=== PATIENT | female | born 1960 | race Two or more races ===

== ENCOUNTER 2017-09-19 02:51 | Inpatient (IN) | payer OTHER ==
[~2017-09-19] VITALS: Ht 160 cm; Wt 91.6 kg
--- NOTE | 2017-09-19 03:15 | NUR ---
IV STARTED BY ANGELY RAC 18G. BLOOD AND URINE SENT TO LAB
--- NOTE | 2017-09-19 03:16 | NUR ---
EKG TO BE DONE BY DEBONING TEAM LEADER AT BEDSIDE
[2017-09-19 03:21] LABS: BASOPHILS # (AUTO) 0.1 /CMM (0.0-0.2); BASOPHILS % (AUTO) 0.5 % (0.0-2.0); EOSINOPHILS % (AUTO) 1.3 % (0.0-6.0); HEMATOCRIT 48 % (33-45); HEMOGLOBIN 15.9 g/dL (11.5-14.8); LYMPHOCYTES # (AUTO) 3.3 /CMM (0.8-4.8); LYMPHOCYTES % (AUTO) 24.8 % (20.0-44.0); MEAN CORPUSCULAR HEMOGLOBIN 31 PG (26.0-33.0); MEAN CORPUSCULAR HGB CONC 33 g/dl (31.0-36.0); MEAN CORPUSCULAR VOLUME 93 fL (82-100); MONOCYTES # (AUTO) 0.6 /CMM (0.1-1.30); MONOCYTES % (AUTO) 4.2 % (2.0-12.0); NEUTROPHILS # (AUTO) 9.1 /CMM (1.8-8.9); NEUTROPHILS % (AUTO) 69.2 % (43.0-81.0); PLATELET COUNT (AUTO) 250 /CMM (150-450); RDW COEFFICIENT OF VARIATION 13.2 (11.5-15.0); RED BLOOD CELL COUNT(AUTO) 5.14 MIL/uL (4.0-5.2); WHITE BLOOD COUNT (AUTO) 13.1 K/uL (4.3-11.0)
[2017-09-19] MEDS ORDERED: DILTIAZEM HCL 25 MG IV ONE (03:25)
[2017-09-19] MEDS ORDERED: DILTIAZEM HCL 25 MG IV IV ONE (03:30)
[2017-09-19] MEDS ORDERED: IV NS 0.9% 1,000 ML BAG IV ONE (03:30)
[2017-09-19 03:33] LABS: CALCIUM, SERUM 9.1 mg/dL (8.5-10.1); CARBON DIOXIDE 28 mmol/L (21-32); CHLORIDE 103 mmol/L (98-107); GLUCOSE 192 mg/dL (74-106); POTASSIUM 3.2 mmol/L (3.5-5.1); SODIUM SERUM 141 mmol/L (136-145); UREA NITROGEN, BLOOD 16 mg/dL (7-18)
--- NOTE | 2017-09-19 03:33 | NUR ---
VITALS AFTER 20MG CARDIZEM IVP HR 123 R 25 O2 95% BP 154/92
[2017-09-19 03:43] LABS: TROPONIN I < 0.017 ng/mL (0.00-0.056)
[2017-09-19] MEDS ORDERED: ASPIRIN 81 MG TAB.CHEW ONE (03:52)
[2017-09-19] MEDS ORDERED: PANTOPRAZOLE 40 MG VIAL ONE (03:52)
[2017-09-19] MEDS ORDERED: ONDANSETRON HCL/PF 4 MG/2 ML VIAL ONE (03:52)
[2017-09-19] MEDS ORDERED: ASPIRIN 81 MG TAB.CHEW PO ONE (04:00)
[2017-09-19] MEDS ORDERED: PANTOPRAZOLE 80 MG in IV NS 0.9% 500 ML IV ONE (04:00)
[2017-09-19] MEDS ORDERED: ONDANSETRON HCL/PF 4 MG/2 ML VIAL IV ONE (04:00)
--- NOTE | 2017-09-19 04:38 | NUR ---
PATIENT HAS STATED "I FEEL SO MUCH BETTER. I DO NOT FEEL THAT WEIRD FLUTTER FEELING ANYMORE. SO HAPPY MEDICATION HAS WORKED" WILL CONTINUE TO MONITOR FOR ANY CHANGES DURING THE SHIFT.
[2017-09-19] MEDS ORDERED: IV NS 0.9% 1,000 ML IV PRN (04:50)
[2017-09-19] MEDS ORDERED: ZOLPIDEM TARTRATE 5 MG TABLET PO PRN (05:00)
[2017-09-19] MEDS ORDERED: METOPROLOL TARTRATE 25 MG TABLET PO PRN (05:00)
[2017-09-19] MEDS ORDERED: HYDROCODONE/APAP 5/325MG 1 EACH TABLET PO PRN (05:00)
[2017-09-19] MEDS ORDERED: Z GUARD REMEDY 2 OZ OINT TP PRN (05:00)
[2017-09-19] MEDS ORDERED: hydrALAZINE HCL 25 MG TABLET PO PRN (05:00)
[2017-09-19] MEDS ORDERED: MORPHINE SULFATE INJ 2 MG/ML DISP.SYRIN IV PRN (05:00)
[2017-09-19] MEDS ORDERED: MAG HYDROX/AL HYDROX/SIMETH 30 ML UDC PO PRN (05:00)
[2017-09-19] MEDS ORDERED: ONDANSETRON HCL/PF 4 MG/2 ML VIAL IVP PRN (05:00)
[2017-09-19] MEDS ORDERED: MAGNESIUM HYDROXIDE 30 ML UDC PO PRN (05:00)
[2017-09-19] MEDS ORDERED: POTASSIUM CHLORIDE 20 MEQ TAB.PRT.SR PO ONE ×2 (05:00)
--- NOTE | 2017-09-19 06:03 | NUR ---
CIRCULAR SAW OPERATOR AT BEDSIDE
[2017-09-19] MEDS ORDERED: LANS30CA56 PO (06:26)
[2017-09-19] MEDS ORDERED: BENA20TA2 PO (06:26)
[2017-09-19] MEDS ORDERED: PHEN100C4 PO (06:26)
--- NOTE | 2017-09-19 07:30 | NUR ---
ARGON TESTER OPENING NOTES RECEIVED PATIENT IN BED AWAKE, IN STABLE CONDITION. ALERT AND ORIENTED X4. VERBALLY RESPONSIVE, ABLE TO MAKE NEEDS KNOWN. BREATHING EVEN AND UNLABORED. CURRENTLY WITH NO COMPLAINTS OF PAIN OR DISCOMFORT. SKIN DRY AND WARM TO TOUCH. IV ON RIGHT AC #18 INTACT AND PATENT. CURRENTLY NPO TILL FURTHER ORDERS FROM TUBE WASHER. ALL OTHER NEEDS ATTENDED TO. CALL LIGHT WITHIN REACH. BED ON LOWEST LOCKED POSITION. WILL CONTINUE TO MONITOR.
[2017-09-19 08:00] VITALS: BP 123/77
[2017-09-19] MEDS ORDERED: MORPHINE SULFATE INJ 4 MG/ML DISP.SYRIN IV PRN (08:21)
[2017-09-19] MEDS ORDERED: ASPIRIN 81 MG TAB.CHEW PO SCH (09:00)
[2017-09-19 09:58] LABS: THYROID STIMULATING HORMONE 2.516 uIU/mL (0.358-3.74)
[2017-09-19] MEDS ORDERED: IOHEXOL-350 100 ML VIAL IV ONE ×2 (11:02→11:55)
[2017-09-19] MEDS ORDERED: CT SWABBABLE VALVE TRANS SET 1 EA INFUS.SET MC ONE (11:03)
[2017-09-19] MEDS ORDERED: IV NS 0.9% 250 ML IV ONE (11:03)
[2017-09-19 11:09] LABS: PHOSPHORUS 3.7 mg/dL (2.5-4.9)
[2017-09-19] MEDS: DILTIAZEM HCL 30 MG TABLET PO SCH ×3 (12:00→18:00)
--- NOTE | 2017-09-19 12:34 | NUR ---
DURING CTA OF HEART, PT IV INFILTRATED WITH APPROX 30 CC OF ISO 350. COMPRESSION PAD WAS APPLIED ON THE SITE( WARM). NURSING STRAIGHT TRUCK DRIVER WAS INFORMED.OF INCIDENT.
[2017-09-19] MEDS: METOPROLOL TARTRATE 25 MG TABLET PO SCH ×2 (12:48→18:00)
--- NOTE | 2017-09-19 12:50 | NUR ---
RN NOTES DILTIAZEM GIVEN AT 12:50PM SCHEDULED.
[2017-09-19 16:04] VITALS: BP 110/65
--- NOTE | 2017-09-19 18:39 | NUR ---
DRIVER LICENSE AGENT CLOSING NOTES PATIENT IN BED AWAKE, IN STABLE CONDITION. ALERT AND ORIENTED X4. VERBALLY RESPONSIVE, ABLE TO MAKE NEEDS KNOWN. BREATHING EVEN AND UNLABORED. CURRENTLY WITH NO COMPLAINTS OF PAIN OR DISCOMFORT. SKIN DRY AND WARM TO TOUCH. IV ON LEFT AC #18 INTACT AND PATENT. HAD CTA EARLIER WITH NO ABNORMAL RESULTS. ALL OTHER NEEDS ATTENDED TO. CALL LIGHT WITHIN REACH. BED ON LOWEST LOCKED POSITION. WILL CONTINUE TO MONITOR. WILL ENDORSE TO ONCOMING NURSE FOR CONTINUITY OF CARE.
[2017-09-19] MEDS: ACETAMINOPHEN 325 MG TABLET PO PRN (18:59)
--- NOTE | 2017-09-19 19:30 | NUR ---
SOFTLINES SUPERVISOR OPENING NOTES PT RESTING IN BED, A/O X 4 BREATHING EVEN AND UNLABORED WITH NO COMPLAINTS OF PAIN OR DISCOMFORT. IV ON LEFT AC #18 INTACT AND PATENT.SINUS BRADYCARDIA HR 57-58 . CALL LIGHT WITHIN REACH. BED ON LOWEST LOCKED POSITION. WILL CONTINUE TO MONITOR.
[2017-09-19 20:00] VITALS: BP 128/78
[2017-09-20] MEDS: METOPROLOL TARTRATE 25 MG TABLET PO SCH ×2 (02:02→02:03)
[2017-09-20] MEDS: DILTIAZEM HCL 30 MG TABLET PO SCH ×2 (02:03→06:55)
[2017-09-20 06:55] LABS: BASOPHILS % (AUTO) 0.3 % (0.0-2.0); EOSINOPHILS % (AUTO) 1.9 % (0.0-6.0); HEMATOCRIT 48 % (33-45); HEMOGLOBIN 16.4 g/dL (11.5-14.8); LYMPHOCYTES # (AUTO) 2.8 /CMM (0.8-4.8); LYMPHOCYTES % (AUTO) 23.6 % (20.0-44.0); MEAN CORPUSCULAR HEMOGLOBIN 32 PG (26.0-33.0); MEAN CORPUSCULAR HGB CONC 34 g/dl (31.0-36.0); MEAN CORPUSCULAR VOLUME 93 fL (82-100); MONOCYTES # (AUTO) 0.7 /CMM (0.1-1.30); MONOCYTES % (AUTO) 5.9 % (2.0-12.0); NEUTROPHILS # (AUTO) 8.2 /CMM (1.8-8.9); NEUTROPHILS % (AUTO) 68.3 % (43.0-81.0); PLATELET COUNT (AUTO) 199 /CMM (150-450); RDW COEFFICIENT OF VARIATION 13.2 (11.5-15.0); WHITE BLOOD COUNT (AUTO) 11.9 K/uL (4.3-11.0)
[2017-09-20 07:10] LABS: TROPONIN I 0.244 ng/mL (0.00-0.056)
[2017-09-20 07:11] LABS: ALBUMIN 3.3 g/dL (3.4-5.0); BILIRUBIN,TOTAL 0.5 mg/dL (0.2-1.0); CALCIUM, SERUM 9.1 mg/dL (8.5-10.1); CREATININE 0.8 mg/dL (0.6-1.3); MAGNESIUM 1.9 mg/dL (1.8-2.4); PHOSPHORUS 5.4 mg/dL (2.5-4.9); POTASSIUM 3.7 mmol/L (3.5-5.1); TOTAL PROTEIN, SERUM 7.6 g/dL (6.4-8.2)
--- NOTE | 2017-09-20 07:11 | NUR ---
TILE TRIMMER CLOSING NOTES PT RESTING IN BED, A/O X 4 BREATHING EVEN AND UNLABORED WITH NO COMPLAINTS OF PAIN OR DISCOMFORT. IV ON LEFT AC #18 INTACT AND PATENT.SINUS BRADYCARDIA HR 47-51 . CALL LIGHT WITHIN REACH. BED ON LOWEST LOCKED POSITION. WILL ENDORSE TO DAY SHIFT NURSE FOR NORMA.
[2017-09-20 08:00] VITALS: BP 123/63
--- NOTE | 2017-09-20 08:00 | NUR ---
MS RN NOTES PATIENT IN BED RESTING. ALERT, ORIENTED X3 NO SOB OR ACUTE DISTRESS NOTED. PATIENT DENIES ANY PAIN OR DISCOMFORT. PERIPHERAL IV INTACT PATENT. ALL BED IN LOW LOCKED POSITION. CALL LIGHT WITHIN REACH. WILL CONTINUE TO MONITOR.
[2017-09-20] MEDS: ACETAMINOPHEN 325 MG TABLET PO PRN (08:07)
--- NOTE | 2017-09-20 08:30 | NUR ---
PHILOSOPHY LECTURER NOTES PATIENT SEEN AND EVALUATED BY DR. DUMONT. PATIENT CLEARED TO BE DISCHARGED HOME.
[2017-09-20] MEDS ORDERED: METOPROLOL TARTRATE 25 MG TABLET PO SCH (09:00)
[2017-09-20 16:00] VITALS: BP 136/76
--- NOTE | 2017-09-20 18:20 | NUR ---
MS RN NOTES PATIENT DISCHARGED HOME WITH SON. IN STABLE CONDITION. PATIENT ALERT, ORIENTED X3. AWARE OF ALL ABNORMAL LABS. DISCHARGE INSTRUCTIONS PROVIDED TO PATIENT VERBALIZED UNDERSTANDING. PATIENT REFUSE PICTURES STATES THEY WERE JUST TAKEN YESTERDAY. PRESCRIPTION PROVIDED TO PATIENT. ALL BELONGINGS ACCOUNTED FOR , BELONGING LIST SIGNED BY PATIENT. PATIENT DISCHARGED BY PRIVATE CAR WITH SON.
== END 2017-09-20 18:40 | disposition home or self-care (01) | DRG 201 ==
LOC: ER 02:51 → TELE 06:06 → MED 09-20 07:42
PROVIDERS: ADMIT Internal Medicine; ATTEND Internal Medicine
DX: I48.91 Unspecified atrial fibrillation (principal); I21.A1 Myocardial infarction type 2; D68.59 Other primary thrombophilia; I10 Essential (primary) hypertension; G40.909 Epilepsy, unspecified, not intractable, without status epilepticus; E55.9 Vitamin D deficiency, unspecified; E66.01 Morbid (severe) obesity due to excess calories; E87.6 Hypokalemia; I25.2 Old myocardial infarction; K21.9 Gastro-esophageal reflux disease without esophagitis; Z79.899 Other long term (current) drug therapy; D72.829 Elevated white blood cell count, unspecified; Z68.35 Body mass index [BMI] 35.0-35.9, adult
CPT/HCPCS: 36415; 71045-TC; 75574; 80048-TC; 80053-TC; 80061-TC; 80185-TC; 82306; 83735-TC; 84100-TC; 84439-TC; 84443-TC; 84484-TC; 85025-TC; 85378-TC; 87081-TC; 93307-TC; A4606; C9113; J2405; J3490; J7030; J7040; J7050; Q9967; Z7610

== ENCOUNTER 2023-04-20 11:10 | Emergency (ER) | payer MEDICAID, OTHER ==
[~2023-04-20] VITALS: Ht 157.5 cm; Wt 83.9 kg
[~2023-04-20 11:10] MED LIST: BENA20TA9 PO; LANS30CA56 PO; PHEN100C4 PO
[2023-04-20 11:21] VITALS: BP 174/80; TEMP 98
[2023-04-20 11:25] VITALS: O2SAT 98
[2023-04-20] MEDS ORDERED: GUAIFENESIN/D-METHORPHAN HB 5 ML UDC PO ONE (11:30)
[2023-04-20] MEDS ORDERED: dexaMETHasone SOD PHOSPHATE 10 MG/ML VIAL MC ONE (11:30)
[2023-04-20] MEDS ORDERED: dexaMETHasone SOD PHOSPHATE 1 ML ONE (11:33)
[2023-04-20] MEDS ORDERED: GUAIFENESIN/D-METHORPHAN HB 5 ML UDC ONE (11:33)
== END 2023-04-20 13:30 | disposition home or self-care (01) ==
LOC: ER 11:10
DX: J02.8 Acute pharyngitis due to other specified organisms (principal); I10 Essential (primary) hypertension
CPT/HCPCS: 99283; 87880; J1100; 86403-TC

== ENCOUNTER 2023-09-08 22:07 | Emergency (ER) | payer MEDICAID | END 2023-09-08 22:28 | disposition left against medical advice (07) | LOC: ER 22:09 | DX: R51.9 Headache, unspecified (principal); Z53.21 Procedure and treatment not carried out due to patient leaving prior to being seen by health care provider ==

== ENCOUNTER 2023-10-15 00:32 | Emergency (ER) | payer MEDICAID, OTHER ==
[~2023-10-15] VITALS: Ht 157.5 cm; Wt 81.6 kg
[2023-10-15 01:25] LABS: BASOPHILS % (AUTO) 0.4 % (0.0-2.0); EOSINOPHILS # (AUTO) 0.2 K/uL (0.0-0.7); EOSINOPHILS % (AUTO) 1.7 % (0.0-6.0); HEMATOCRIT 41 % (33-45); HEMOGLOBIN 13.6 g/dL (11.5-14.8); LYMPHOCYTES # (AUTO) 2.9 K/uL (0.8-4.8); LYMPHOCYTES % (AUTO) 30.4 % (20.0-44.0); MEAN CORPUSCULAR HEMOGLOBIN 30 PG (26.0-33.0); MEAN CORPUSCULAR HGB CONC 33 g/dl (31.0-36.0); MEAN CORPUSCULAR VOLUME 92 fL (82-100); MONOCYTES # (AUTO) 0.8 K/uL (0.1-1.30); NEUTROPHILS # (AUTO) 5.6 K/uL (1.8-8.9); NEUTROPHILS % (AUTO) 59.5 % (43.0-81.0); PLATELET COUNT (AUTO) 237 K/uL (150-450); RED BLOOD CELL COUNT(AUTO) 4.45 MIL/uL (4.0-5.2); RED CELL DISTRIBUTION WIDTH 13.4 % (11.5-15.0); WHITE BLOOD COUNT (AUTO) 9.5 K/uL (4.3-11.0)
[2023-10-15] MEDS ORDERED: TDAP [DIPH/PERTUSSIS/TET] 0.5 ML VIAL IM ONE (01:30)
[2023-10-15 01:34] LABS: CALCIUM, SERUM 8.7 mg/dL (8.5-10.1); CREATININE 0.6 mg/dL (0.6-1.3); POTASSIUM 3.4 mmol/L (3.5-5.1)
[2023-10-15 01:47] LABS: ALBUMIN 2.8 g/dL (3.4-5.0); BILIRUBIN,TOTAL 0.2 mg/dL (0.2-1.0); TOTAL PROTEIN, SERUM 6.8 g/dL (6.4-8.2)
[2023-10-15 03:13] VITALS: BP 132/80; TEMP 98.1; O2SAT 98
== END 2023-10-15 03:13 | disposition home or self-care (01) ==
LOC: ER 00:44
DX: S01.81XA Laceration without foreign body of other part of head, initial encounter (principal); R56.9 Unspecified convulsions; I10 Essential (primary) hypertension; Z86.79 Personal history of other diseases of the circulatory system; W01.198A Fall on same level from slipping, tripping and stumbling with subsequent striking against other object, initial encounter; Y93.89 Activity, other specified; Y92.098 Other place in other non-institutional residence as the place of occurrence of the external cause; Y99.8 Other external cause status
CPT/HCPCS: 36415; 70450-TC; 70486-TC; 71045-TC; 80053-TC; 83880; 84484-TC; 85025-TC

== ENCOUNTER 2023-10-31 14:42 | Emergency (ER) | payer OTHER ==
[~2023-10-31] VITALS: Ht 157.5 cm; Wt 90.7 kg
[2023-10-31 14:48] VITALS: TEMP 98.5
[2023-10-31] MEDS ORDERED: ACETAMINOPHEN ES 500 MG TABLET ONE (15:05)
[2023-10-31] MEDS: ACETAMINOPHEN ES 500 MG TABLET PO ONE (15:07)
[2023-10-31 15:33] LABS: BASOPHILS % (AUTO) 0.3 % (0.0-2.0); EOSINOPHILS % (AUTO) 0.3 % (0.0-6.0); HEMATOCRIT 44 % (33-45); HEMOGLOBIN 14.8 g/dL (11.5-14.8); LYMPHOCYTES # (AUTO) 1.8 K/uL (0.8-4.8); LYMPHOCYTES % (AUTO) 19.6 % (20.0-44.0); MEAN CORPUSCULAR HEMOGLOBIN 30 PG (26.0-33.0); MEAN CORPUSCULAR HGB CONC 34 g/dl (31.0-36.0); MEAN CORPUSCULAR VOLUME 90 fL (82-100); MONOCYTES # (AUTO) 0.5 K/uL (0.1-1.30); MONOCYTES % (AUTO) 5.6 % (2.0-12.0); NEUTROPHILS # (AUTO) 6.9 K/uL (1.8-8.9); NEUTROPHILS % (AUTO) 74.2 % (43.0-81.0); PLATELET COUNT (AUTO) 256 K/uL (150-450); RED BLOOD CELL COUNT(AUTO) 4.89 MIL/uL (4.0-5.2); RED CELL DISTRIBUTION WIDTH 13.1 % (11.5-15.0); WHITE BLOOD COUNT (AUTO) 9.4 K/uL (4.3-11.0)
[2023-10-31 15:49] LABS: CALCIUM, SERUM 8.9 mg/dL (8.5-10.1); CARBON DIOXIDE 25 mmol/L (21-32); CHLORIDE 104 mmol/L (98-107); CREATININE 0.7 mg/dL (0.6-1.3); GLUCOSE 101 mg/dL (74-106); POTASSIUM 3.6 mmol/L (3.5-5.1); SODIUM SERUM 139 mmol/L (136-145); UREA NITROGEN, BLOOD 13 mg/dL (7-18)
[2023-10-31 17:36] VITALS: BP 163/90; O2SAT 96
== END 2023-10-31 17:39 | disposition home or self-care (01) ==
LOC: ER 15:15
DX: S05.11XA Contusion of eyeball and orbital tissues, right eye, initial encounter (principal); I10 Essential (primary) hypertension; G40.909 Epilepsy, unspecified, not intractable, without status epilepticus; Z86.79 Personal history of other diseases of the circulatory system; W01.198A Fall on same level from slipping, tripping and stumbling with subsequent striking against other object, initial encounter; Y93.89 Activity, other specified; Y92.098 Other place in other non-institutional residence as the place of occurrence of the external cause; Y99.8 Other external cause status
CPT/HCPCS: 36415; 70450-TC; 70486-TC; 80048-TC; 84484-TC; 85025-TC

== ENCOUNTER 2024-03-02 14:39 | Emergency (ER) | payer OTHER ==
[~2024-03-02] VITALS: Ht 160 cm; Wt 81.6 kg
[2024-03-02 14:45] VITALS: BP 155/81; TEMP 98.3
[2024-03-02] MEDS ORDERED: FLUORESCEIN SODIUM OPHTH 1 EA STRIP ONE (15:22)
[2024-03-02] MEDS ORDERED: TETRAcaine 5 ML BOTTLE ONE (15:23)
[2024-03-02 15:35] VITALS: O2SAT 99
[2024-03-02] MEDS: FLUORESCEIN SODIUM OPHTH 1 EA STRIP OP ONE (15:35)
[2024-03-02] MEDS: TETRACAINE HCL 0.5% OPHTALMIC 15 ML BOTTLE EACHEYE ONE (15:35)
== END 2024-03-02 15:30 | disposition home or self-care (01) ==
LOC: ER 14:42
DX: B30.9 Viral conjunctivitis, unspecified (principal); I10 Essential (primary) hypertension

== ENCOUNTER 2024-03-04 21:08 | Emergency (ER) | payer OTHER ==
[~2024-03-04] VITALS: Ht 157.5 cm; Wt 81.6 kg
[2024-03-04] MEDS ORDERED: MORPHINE SULFATE INJ 2 MG/ML DISP.SYRIN ONE (21:45)
[2024-03-04] MEDS ORDERED: MORPHINE SULFATE INJ 4 MG/ML DISP.SYRIN ONE (21:46)
[2024-03-04] MEDS ORDERED: ONDANSETRON 4 MG TAB.RAPDIS ONE (21:46)
[2024-03-04] MEDS: ONDANSETRON 4 MG TAB.RAPDIS SL ONE (22:09)
[2024-03-04] MEDS: MORPHINE SULFATE INJ 2 MG/ML DISP.SYRIN IM ONE (22:09)
[2024-03-04] MEDS ORDERED: AMOX/CLAVULANATE 875 MG TABLET ONE (23:12)
[2024-03-04] MEDS: AMOX/CLAVULANATE 875 MG TABLET PO ONE (23:39)
[2024-03-04 23:43] VITALS: BP 165/89; TEMP 98; O2SAT 16
== END 2024-03-04 23:43 | disposition home or self-care (01) ==
LOC: ER 21:21
DX: S13.4XXA Sprain of ligaments of cervical spine, initial encounter (principal); S23.3XXA Sprain of ligaments of thoracic spine, initial encounter; S33.5XXA Sprain of ligaments of lumbar spine, initial encounter; S01.01XA Laceration without foreign body of scalp, initial encounter; I10 Essential (primary) hypertension; Z86.69 Personal history of other diseases of the nervous system and sense organs; Z86.79 Personal history of other diseases of the circulatory system; W10.9XXA Fall (on) (from) unspecified stairs and steps, initial encounter; Y93.89 Activity, other specified; Y92.89 Other specified places as the place of occurrence of the external cause; Y99.8 Other external cause status
CPT/HCPCS: 12002; 70450; 70486; 72125; 72128; 72131; 96372; 99285; J2270; Q0162